=== PATIENT | female | born 1970 ===

== ENCOUNTER 2016-12-06 10:59 | Emergency (ER) | payer MEDICAID ==
[2016-12-06 11:02] VITALS: BMI 30.2
[2016-12-06 11:05] VITALS: RESP 18; TEMP 98
[2016-12-06] MEDS ORDERED: Lidocaine 5% Patch TD STA (11:18)
[2016-12-06] MEDS ORDERED: Lidocaine 5% Patch TD ONE (11:25)
--- NOTE | 2016-12-06 11:58 | C.PDOC ---
History Of Present Illness 46 y/o female presents to ED with c/o lower back pain for 3 days. Patient reports pain radiates to the lower abdomen and bilateral legs. Otherwise, patient denies headache, neck pain, nausea, vomiting, dysuria, hematuria, urinary or bowel incontinence, new extremity weakness, new extremity numbness, or associated symptoms. Time Seen by Provider: 12/06/16 11:12 Chief Complaint (Nursing): Back Pain History Per: Patient History/Exam Limitations: no limitations Onset/Duration Of Symptoms: Days (3) Current Symptoms Are (Timing): Still Present Quality Of Discomfort: "Pain" Associated Symptoms: denies: New Weakness, New Numbness Recent travel outside of the [place]: No Past Medical History Reviewed: Historical Data, Nursing Documentation, Vital Signs Vital Signs: Last Vital Signs Temp 98 F 12/06/16 11:02 Pulse 89 12/06/16 11:02 Resp 18 12/06/16 11:02 BP 134/69 12/06/16 11:02 Pulse Ox 99 12/06/16 12:14 - Medical History PMH: Anemia, Asthma, Bronchitis, HTN, Hypercholesterolemia, Kidney Stones, Chronic Kidney Disease Surgical History: Cholecystectomy (2014), Tonsillectomy - [facility] Procedures DRESSING OF WOUND NEC (05/08/15) INFLUENZA VACCINATION (06/15/12) INJECT/INFUSE ELECTROLYT (09/12/14) INJECT/INFUSE NEC (05/08/15) LAPAROSCOPIC CHOLECYSTECTOMY (09/25/12) NEBULIZER THERAPY (10/25/14) OTHER OPEN UMBILICAL HERNIORRHAPHY (08/06/13) PACKED CELL TRANSFUSION (09/25/12) SUTURE LG BOWEL LACERAT (09/25/12) TETANUS TOXOID ADMINIST (02/07/14) Family History: States: Unknown Family Hx - Social History Hx Tobacco Use: No Hx Alcohol Use: No Hx Substance Use: No - Immunization History Hx Tetanus Toxoid Vaccination: No Hx Influenza Vaccination: No Hx Pneumococcal Vaccination: No Review Of Systems Except As Marked, All Systems Reviewed And Found Negative. Constitutional: Negative for: Fever, Chills Gastrointestinal: Negative for: Nausea, Vomiting Genitourinary: Negative for: Dysuria Musculoskeletal: Positive for: Back Pain Skin: Negative for: Rash Neurological: Negative for: Weakness, Numbness Physical Exam - Physical Exam Appears: Non-toxic, Other (uncomfortable) Skin: Normal Color, Warm, Dry Head: Atraumatic, Normacephalic Neck: No Midline Cervical Tenderness, No Paracervical Tenderness, Supple Chest: Symmetrical Cardiovascular: Rhythm Regular Respiratory: Normal Breath Sounds, No Rales, No Rhonchi, No Wheezing Gastrointestinal/Abdominal: Soft, No Tenderness, No Guarding, No Rebound Back: No Vertebral Tenderness, Paraspinal Tenderness (bilateral lumbar) Extremity: Normal ROM, Capillary Refill (< 2 sec. ) Neurological/Psych: Oriented x3, Normal Speech, Normal Cognition, Normal Motor, Normal Sensation Gait: Steady ED Course And Treatment O2 Sat by Pulse Oximetry: 99 (ra) Pulse Ox Interpretation: Normal Medical Decision Making Medical Decision Making: Impression: 46 y.o female with low back pain Prior records reviewed: Patient last sen 11/28/16 at [facility] had labs and CT A/P , which were normal; patient diagnosed with back pain and prescribed flexeril and naproxen Plan: * Lidoderm patch * Toradol * Urinalysis * Reassess Progress: Urinanalsis reviewed and negative. Patient continued to complain of pain with movement. Valium PO ordered Upon second reevaluation patient appears more comfortable. Advise patient to follow up with primary doctor or clinic in few days. Rx given. Disposition Counseled Patient/Family Regarding: Diagnosis, Need For Followup, Rx Given - Disposition Referrals: Clinic,Med Surg [Primary Care Provider] - Disposition: HOME/ ROUTINE Disposition Time: 12:50 Condition: STABLE Additional Instructions: Your urine test was negative Take pain medicine as needed, may also take ibuprofen or naproxen at home Follow up with your primary medical doctor or clinic in 2-5 days for further evaluation. Return to the emergency department at any time if symptoms persist or worsen. 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 - Scribe Statement The provider has reviewed the documentation as recorded by the Scribe Geronimo Ho All medical record entries made by the Manjulaibkelsi were at my direction and personally dictated by me. I have reviewed the chart and agree that the record accurately reflects my personal performance of the history, physical exam, medical decision making, and the department course for this patient. I have also personally directed, reviewed, and agree with the discharge instructions and disposition.
[2016-12-06 12:12] LABS: RBC URINE 6 /hpf (0-3); URINE BILIRUBIN NEGATIVE (NEGATIVE); URINE BLOOD NEGATIVE (NEGATIVE); URINE COLOR Yellow (YELLOW); URINE GLUCOSE (UA) NORMAL (Normal); URINE KETONE TRACE mg/dL (NEGATIVE); URINE LEUKOCYTE ESTERASE NEG Leu/uL (Negative); URINE PROTEIN NEGATIVE (NEGATIVE); URINE UROBILINOGEN NORMAL mg/dL (0.2-1.0); WBC URINE 2 /hpf (0-5)
[2016-12-06 13:06] VITALS: BP 128/75; PULSE 85
[2016-12-06 13:46] VITALS: O2SAT 99
== END 2016-12-06 13:10 | disposition home or self-care (01) ==
LOC: SUPCPDRO 10:59 → C.ER 10:59
DX: M54.5 Low back pain (principal)
CPT/HCPCS: 81001; 84703; 87086; 96372; 99284; J1885

== ENCOUNTER 2017-01-18 17:22 | Emergency (ER) | payer MEDICAID ==
[2017-01-18 17:23] VITALS: BMI 30.2
[2017-01-18 17:40] VITALS: TEMP 97.8
[2017-01-18] MEDS ORDERED: Sodium Chloride 0.9% 1,000 ML IV ONE (17:42)
--- NOTE | 2017-01-18 17:51 | C.PDOC ---
History Of Present Illness <Alesha Duckworth - Last Filed: 01/18/17 18:51> <Hellen Juarez - Last Filed: 01/18/17 19:47> 46 y/o female sent to ER from her doctor's office with c/o diffuse abdominal pain and dysuria. As per prescription brought by patient, patient sent to ER to r/o gall stones. Denies fever, chills, vomiting, diarrhea, hematuria, or other associated symptoms. (Alesha Duckworth) History Per: Patient History/Exam Limitations: no limitations Current Symptoms Are (Timing): Still Present Location Of Pain/Discomfort: Diffuse Radiation Of Pain To:: None Quality Of Discomfort: "Pain" Associated Symptoms: Urinary Symptoms (dysuria). denies: Vomiting, Diarrhea Recent travel outside of the [place]: No Additional History Per: Patient <Alesha Duckworth - Last Filed: 01/18/17 18:51> <Hellen Juarez - Last Filed: 01/18/17 19:47> Time Seen by Provider: 01/18/17 17:37 Chief Complaint (Nursing): Abdominal Pain Past Medical History Reviewed: Historical Data, Nursing Documentation, Vital Signs - Medical History PMH: Anemia, Asthma, Bronchitis, HTN, Hypercholesterolemia, Kidney Stones, Chronic Kidney Disease Surgical History: Cholecystectomy (2015), Tonsillectomy Family History: States: Unknown Family Hx - Social History Hx Tobacco Use: No Hx Alcohol Use: No Hx Substance Use: No - Immunization History Hx Tetanus Toxoid Vaccination: No Hx Influenza Vaccination: No Hx Pneumococcal Vaccination: No <Alesha Duckworth - Last Filed: 01/18/17 18:51> Review Of Systems Except As Marked, All Systems Reviewed And Found Negative. Constitutional: Negative for: Fever, Chills Respiratory: Negative for: Cough, Shortness of Breath Gastrointestinal: Positive for: Abdominal Pain. Negative for: Vomiting Genitourinary: Positive for: Dysuria. Negative for: Frequency, Hematuria Skin: Negative for: Rash <Alesha Duckworth - Last Filed: 01/18/17 18:51> Physical Exam - Physical Exam Appears: Non-toxic, No Acute Distress Skin: Warm, Dry Head: Atraumatic, Normacephalic Oral Mucosa: Moist Chest: Symmetrical Cardiovascular: Rhythm Regular Respiratory: No Rales, No Rhonchi, No Wheezing Gastrointestinal/Abdominal: Soft, Tenderness (diffuse lower abdomen), No Distention, No Guarding, No Rebound Back: Normal Inspection, No CVA Tenderness Extremity: Normal ROM, Capillary Refill (< 2 sec. ) Neurological/Psych: Oriented x3, Normal Speech, Normal Cognition <Alesha Duckworth - Last Filed: 01/18/17 18:51> ED Course And Treatment - Laboratory Results Result Diagrams: 01/18/17 17:57 01/18/17 17:57 Lab Interpretation: Normal O2 Sat by Pulse Oximetry: 98 (RA) Pulse Ox Interpretation: Normal Progress Note: Review of prior records shows patient with many ER visits for abdominal pain; cholecystectomy in 2012 at [facility]. Treated with zofran, Toradol and IVFs. Labs and CT scan ordered, reviewed. Reassessment Condition: Improved <Alesha Duckworth - Last Filed: 01/18/17 18:51> - Laboratory Results Result Diagrams: 01/18/17 17:57 01/18/17 17:57 Lab Interpretation: No Acute Changes Pulse Ox Interpretation: Normal - CT Scan/US Abd & pelvis CT Other Rad Studies (CT/US): Read By Radiologist, Radiology Report Reviewed CT/US Interpretation: FINDINGS: Limitations: No intravenous contrast. Lower thorax: No acute findings. ABDOMEN: Liver: Unremarkable. Gallbladder and bile ducts: Prior cholecystectomy without CT complications. No ductal dilation. Pancreas: Unremarkable. No ductal dilation. Spleen: Unremarkable. No splenomegaly. Adrenals: Unremarkable. No mass. Kidneys and ureters: No obstructive renal uropathy or lateralizing renal induration. Stomach and bowel : Small fat-containing non-bowel containing umbilical hernia. No obstruction. No mucosal thickening. Appendix: Normal appendix. PELVIS: Bladder: Nondistended bladder No stones. Reproductive: Unremarkable as visualized. ABDOMEN and PELVIS: Intraperitoneal space: Unremarkable. No free air. No significant fluid collection. Bones/joints: Spondylosis and facet arthrosis No acute fracture. No dislocation. Soft tissues: See above. Vasculature: Unremarkable. No abdominal aortic aneurysm. Lymph nodes: Unremarkable. No enlarged lymph nodes. IMPRESSION: No definitive or acute noncontrast CT findings to explain the patient's presentation. No discrete, drainable fluid collection, abscess, localized inflammatory process, free air or. obstruction. Reevaluation Time: 19:44 Reassessment Condition: Improved <Hellen Juarez - Last Filed: 01/18/17 19:47> Medical Decision Making <Alesha Duckworth - Last Filed: 01/18/17 18:51> <Hellen Juarez - Last Filed: 01/18/17 19:47> Medical Decision Making: Patient states that her urine has been dark and she is currently being treated for a urine infection. She also has frequent episodes of kidney stones with hematuria. 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 - Scribe Statement The provider has reviewed the documentation as recorded by the Scribe <Alesha Duckworth - Last Filed: 01/18/17 18:51> <Hellen Juarez - Last Filed: 01/18/17 19:47> - Scribe Statement Geronimo Ho All medical record entries made by the Scribe were at my direction and personally dictated by me. I have reviewed the chart and agree that the record accurately reflects my personal performance of the history, physical exam, medical decision making, and the department course for this patient. I have also personally directed, reviewed, and agree with the discharge instructions and disposition. (Alesha Duckworth
[2017-01-18 18:01] LABS: BASO # 0.1 K/uL (0.0-0.2); BASO % 0.7 % (0.0-2.0); EOS # 0.2 K/uL (0.0-0.7); EOS % 2.1 % (0.0-4.0); HEMATOCRIT 38.6 % (34.0-47.0); LYMPH # 2.5 K/uL (1.0-4.3); MEAN CELL VOLUME 84.4 fL (81.0-99.0); MEAN CORPUSCULAR HEMOGLOBIN 27.6 pg (27.0-31.0); MEAN CORPUSCULAR HGB CONC 32.7 g/dL (33.0-37.0); MEAN PLATELET VOLUME 9.1 fL (7.2-11.7); MONO # 0.5 K/uL (0.0-0.8); MONO % 5.8 % (0.0-10.0); RED CELL DISTRIBUTION WIDTH 12.8 % (11.5-14.5); WHITE BLOOD COUNT 9.2 K/uL (4.8-10.8)
[2017-01-18 18:09] LABS: CHLORIDE 103 mmol/L (98-107); POTASSIUM 4.6 mmol/L (3.6-5.2); SODIUM 142 mmol/L (132-148)
[2017-01-18 18:11] LABS: ALB/GLOB RATIO 1.4 (1.0-2.1); ALKALINE PHOSPHATASE 90 U/L (38-126); AST/SGOT 35 U/L (14-36); BILIRUBIN,TOTAL 0.7 mg/dL (0.2-1.3); CARBON DIOXIDE 28 mmol/L (22-30); GFR AFRICAN-AMERICAN > 60
[2017-01-18 18:12] LABS: ALT/SGPT 29 U/L (9-52); BLOOD UREA NITROGEN 11 mg/dL (7-17); CALCIUM 8.3 mg/dl (8.6-10.4); GLUCOSE,RANDOM 130 mg/dL (65-105)
[2017-01-18 19:18] LABS: RBC URINE 12 /hpf (0-3); URINE BACTERIA OCC (<OCC); URINE BILIRUBIN NEGATIVE (NEGATIVE); URINE BLOOD 1+ (NEGATIVE); URINE COLOR Yellow (YELLOW); URINE GLUCOSE (UA) NORMAL (Normal); URINE KETONE NEGATIVE (NEGATIVE); URINE LEUKOCYTE ESTERASE NEG Leu/uL (Negative); URINE PROTEIN NEGATIVE (NEGATIVE); URINE UROBILINOGEN NORMAL mg/dL (0.2-1.0); WBC URINE 2 /hpf (0-5)
[2017-01-18 20:01] VITALS: BP 128/77; PULSE 60; RESP 16; O2SAT 97
--- NOTE | 2017-01-19 08:24 | CT ---
PROCEDURE: CT Abdomen and Pelvis without intravenous contrast HISTORY: Abdominal pain COMPARISON: None. TECHNIQUE: Multiple contiguous axial images were performed through the abdomen and pelvis without the use of intravenous contrast. Subsequently, sagittal and coronal reformatted images were obtained. Radiation dose: Total exam DLP = 624 mGy-cm. This CT exam was performed using one or more of the following dose reduction techniques: Automated exposure control, adjustment of the mA and/or kV according to patient size, and/or use of iterative reconstruction technique. FINDINGS: LOWER THORAX: Unremarkable. LIVER: Unremarkable. No gross lesion or ductal dilatation. GALLBLADDER AND BILE DUCTS: Prior cholecystectomy. PANCREAS: Unremarkable. No gross lesion or ductal dilatation. SPLEEN: Unremarkable. ADRENALS: Unremarkable. No mass. KIDNEYS AND URETERS: Unremarkable. No hydronephrosis. No solid mass. VASCULATURE: Unremarkable. No aortic aneurysm. BOWEL: Unremarkable. No obstruction. No gross mural thickening. Small fat containing non bowel containing umbilical hernia. APPENDIX: Unremarkable. Normal appendix. PERITONEUM: Unremarkable. No free fluid. No free air. LYMPH NODES: Unremarkable. No enlarged lymph nodes. BLADDER: Unremarkable. REPRODUCTIVE: Unremarkable. BONES: Spondylosis and facet arthrosis. Mild retrolisthesis of L5 on S1. OTHER FINDINGS: None. IMPRESSION: Negative acute. Additional findings as above. These findings were preliminarily reported at 7:05 p.m. on 01/18/[address] Medina Solomon from [facility].
== END 2017-01-18 20:20 | disposition home or self-care (01) ==
LOC: C.ER 17:22
DX: R31.9 Hematuria, unspecified (principal); R10.84 Generalized abdominal pain
CPT/HCPCS: 74176; 80053; 81001; 83690; 84703; 85025; 96361; 96374; 96375; 99285; J1885; J2405; J7040